=== PATIENT | female | born 1990 | race Caucasian/White ===

== ENCOUNTER 2016-08-13 09:18 | Emergency (ER) | payer OTHER ==
[2016-08-13] MEDS ORDERED: ALBUTEROL 90 MCG/ACT 8GM HFA INHALER As Ordered ONE (10:23)
--- NOTE | 2016-08-13 10:36 | EDDOCDS ---
Nurse's Notes [facility] Name: Chantel Lucas Age: 25 yrs Sex: Female : 1990 Arrival Date: 08/13/2016 Time: 09:18 Bed Triage 2 Private MD: SUZE Diagnosis: Viral infection, unspecified;Acute bronchitis;Acute upper respiratory infections of multiple and unspecified sites Presentation: 08/13 09:30 Presenting complaint: Patient states: pt c/o cough/fever/diarrhea/vomiting/ for approx ead 1 week. Adult Sepsis Screening: The patient does not have new or worsening altered mentation. Patient has a respiratory rate of greater than or equal to 22 (1 point). Systolic blood pressure is greater than 100. Patient has a qSOFA score of 1- Negative Sepsis Screen. Suicide/Homicide risk assessment- the patient denies having any suicidal and/or homicidal ideations and does not present with any other emotional, behavioral or mental health complaints. Status: Patient is not a plumbing service technician or dependent. Transition of care: patient was not received from another setting of care. 09:30 Acuity: CARLEE Level 3 ead 09:30 Method Of Arrival: Walkin/Carried/Asstd ead Triage Assessment: 09:32 General: Appears in no apparent distress, Behavior is appropriate for age, cooperative. ead Pain: Denies pain. HIV screening NA for this visit Offered previously. Neurological: No deficits noted. EENT: Reports nasal congestion. Respiratory: Onset: The symptoms/episode began/occurred approx 1 week, Airway is patent Respiratory effort is even, unlabored, Reports cough that is productive. GI: Reports diarrhea, nausea, vomiting, Denies pain. Derm: Skin is pink, warm & dry. 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 none - PMHx: Chronic Back pain; - PSHx: Cholecystectomy; Adenoidectomy; Tonsillectomy; - Social history: Smoking status: Patient uses tobacco products, current every day smoker. No barriers to communication noted, The patient speaks fluent Mosotho, Speaks appropriately for age. - Family history: Not pertinent. - : The pt / caregiver states he / she is not on anticoagulants. Home medication list is obtained from the patient. - Exposure Risk Screening:: None identified. Screenin:30 Screening information is obtained from the patient. Fall risk: No risks identified. ead Assistance ADL's: requires no assistance with activities of daily living. Abuse/DV Screen: The patient / caregiver reports he/she is: not in a situation that causes fear, pain or injury. Nutritional screening: No deficits noted. Advance Directives: Currently, there is no health care proxy. There is no Power of Filter Changing Technician. home support is adequate. Assessment: 10:30 General: Appears in no apparent distress, comfortable, Behavior is appropriate for age, ead cooperative. Neurological: No deficits noted. EENT: Reports nasal congestion. Cardiovascular: Capillary refill < 3 seconds Chest pain is denied. Respiratory: Airway is patent Respiratory effort is even, unlabored. Respiratory: Reports cough that is. GI: Reports diarrhea, nausea, vomiting. Derm: Skin is pink, warm & dry. Vital Signs: 09:20 BP 136 / 80; Pulse 101; Resp 22; Temp 96.8(O); Pulse Ox 98% on R/A; Weight 142.88 kg [facility] (M); Height 5 ft. 5 in. (165.10 cm) (M); Pain 0/10; 10:31 BP 142 / 67; Pulse 95; Resp 24; Temp 96.7(O); Pulse Ox 99% on R/A; ead 09:20 Body Mass Index 52.42 (142.88 kg, 165.10 cm) [facility] Vitals: 09:20 Log In Time: August 13, 2016 at 09:15. dem1 09:25 RN notified that patient meets Red Flag criteria. [facility] ED Course: 09:19 Patient visited by Catarino Luke. dem1 09:19 NONE is Private Physician. dem1 09:19 Patient moved to Waiting dem1 09:20 Patient visited by Catarino Luke. dem1 09:20 Patient moved to Pre RCE dem1 09:26 Patient moved to Triage 1 ml6 09:28 Patient moved to Pre RCE ml6 09:31 Triage Initiated ead 09:55 Reji Tran [facility]-C [facility] cc10 09:55 Jesus Reyes MD is Attending Physician. cc10 09:55 Patient visited by Reji Tran PA-C. cc10 09:55 Patient visited by Reji Tran PA-C. cc10 09:55 Patient moved to Triage 2 ml6 10:03 [facility] is Referral Physician. cc10 10:30 The patient / caregiver is instructed regarding the plan of care and ED course. ead 10:30 No IV's were initiated during this patient's visit. No procedures done that require ead assistance. Administered Medications: 10:27 Drug: Ventolin 2 puffs [Ventolin HFA 90 mcg/actuation aerosol inhaler (2 puffs)] Route: kjn Inhalation; RT: 10:27 Initial MDI Given. Patient was instructed and evaluated on procedure Patient tolerated kjn procedure well without adverse effect Spacer used Number of puffs given: 2. Order Results: There are currently no results for this order. Outcome: 10:03 Discharge ordered by Provider. cc10 10:30 Discharge Assessment: Patient awake and alert. obeys commands, Oriented to person, ead place and time. patient administered narcotics - no. The following High Risk Discharge criteria are identified: None. Discharged to home ambulatory, with significant other. Condition: unchanged. Discharge instructions given to patient, Instructed on discharge instructions, follow up and referral plans. medication usage, Demonstrated understanding of instructions, medications, Pt was receptive of discharge instructions/ teaching. Prescriptions given X 2, Work note provided to patient. No special radiology studies were completed. Property sent home with patient. 10:35 Patient left the ED. ead Signatures: Syd Han, JESSICA RN ml6 Catarino Luke1 Luna Matthews Emily, RN RN ead Reji Tran PA-C PA-C cc10 MTDD
--- NOTE | 2016-08-13 10:36 | EDDOCDS ---
Physician Documentation [facility] Name: Chantel Lucas Age: 25 yrs Sex: Female : 1990 Arrival Date: 08/13/2016 Time: 09:18 Bed Triage 2 Private MD: NONE Disposition: 08/13/16 10:03 Discharged to Home/Self Care. Impression: Viral infection, unspecified, Acute bronchitis, Acute upper respiratory infections of multiple and unspecified sites. - Condition is Stable. - Discharge Instructions: Acute Bronchitis, Upper Respiratory Infection, Adult, Viral Infections. - Prescriptions for Prednisone 20 mg Oral Tablet - take 1 tablet by ORAL route once daily for 5 days; 5 tablet. benzonatate 200 mg Oral Capsule - take 1 capsule by ORAL route 3 times per day As needed; 30 capsule. - Medication Reconciliation, Work Release Form - 2 day form. - Follow up: [facility]; When: Call to arrange an appointment; Reason: Wound/Symptom Recheck, Recheck today's complaints, Worsening of conditions, Continuance of care, To establish care. - Problem is an ongoing problem. - Symptoms are unchanged. Historical: - Allergies: Bactrim DS (Rash); PENICILLINS (Unknown); - Home Meds: 1. none - PMHx: Chronic Back pain; - PSHx: Cholecystectomy; Adenoidectomy; Tonsillectomy; - Social history: Smoking status: Patient uses tobacco products, current every day smoker. No barriers to communication noted, The patient speaks fluent Yakut, Speaks appropriately for age. - Family history: Not pertinent. - : The pt / caregiver states he / she is not on anticoagulants. Home medication list is obtained from the patient. - Exposure Risk Screening:: None identified. 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 5 in. (165.10 cm) (M); Pain 0/10; 10:31 BP 142 / 67; Pulse 95; Resp 24; Temp 96.7(O); Pulse Ox 99% on R/A; ead 09:20 Body Mass Index 52.42 (142.88 kg, 165.10 cm) dem1 MDM: 10:01 Ventolin Inhaler 2 puffs Inhalation once ordered. cc10 10:01 MDI teaching with Spacer ordered. cc10 10:01 Call Respiratory ordered. cc10 10:01 Call Respiratory complete. jlf 10:19 Financial registration complete. va Administered Medications: 10:27 Drug: Ventolin 2 puffs [Ventolin HFA 90 mcg/actuation aerosol inhaler (2 puffs)] Route: kjn Inhalation; Signatures: Mp Chun, ANGELA PROFESSOR OF MUSIC jlf Ann Turner,RN RN eaReji Diehl, PA-C PA-C cc10 Sara Galvez Katherine kjn MTDD
--- NOTE | 2016-08-15 11:36 | EDDOCDS ---
Physician Documentation [facility] Name: Chantel Lucas Age: 25 yrs Sex: Female : 1990 Arrival Date: 08/13/2016 Time: 09:18 Bed Triage 2 Private MD: NONE Disposition: 08/13/16 10:03 Discharged to Home/Self Care. Impression: Viral infection, unspecified, Acute bronchitis, Acute upper respiratory infections of multiple and unspecified sites. - Condition is Stable. - Discharge Instructions: Acute Bronchitis, Upper Respiratory Infection, Adult, Viral Infections. - Prescriptions for Prednisone 20 mg Oral Tablet - take 1 tablet by ORAL route once daily for 5 days; 5 tablet. benzonatate 200 mg Oral Capsule - take 1 capsule by ORAL route 3 times per day As needed; 30 capsule. - Medication Reconciliation, Work Release Form - 2 day form. - Follow up: [facility]; When: Call to arrange an appointment; Reason: Wound/Symptom Recheck, Recheck today's complaints, Worsening of conditions, Continuance of care, To establish care. - Problem is an ongoing problem. - Symptoms are unchanged. Historical: - Allergies: Bactrim DS (Rash); PENICILLINS (Unknown); - Home Meds: 1. none - PMHx: Chronic Back pain; - PSHx: Cholecystectomy; Adenoidectomy; Tonsillectomy; - Social history: Smoking status: Patient uses tobacco products, current every day smoker. No barriers to communication noted, The patient speaks fluent Azeri, Speaks appropriately for age. - Family history: Not pertinent. - : The pt / caregiver states he / she is not on anticoagulants. Home medication list is obtained from the patient. - Exposure Risk Screening:: None identified. 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 5 in. (165.10 cm) (M); Pain 0/10; 10:31 BP 142 / 67; Pulse 95; Resp 24; Temp 96.7(O); Pulse Ox 99% on R/A; ead 09:20 Body Mass Index 52.42 (142.88 kg, 165.10 cm) dem1 MDM: 10:01 Ventolin Inhaler 2 puffs Inhalation once ordered. cc10 10:01 MDI teaching with Spacer ordered. cc10 10:01 Call Respiratory ordered. cc10 10:01 Call Respiratory complete. jlf 10:19 Financial registration complete. md 10:56 [facility] Payment Agreement was scanned into [employer] and attached to record. md 13:44 T-Sheet-- Draft Copy was scanned into [employer] and attached to record. klr Administered Medications: 10:27 Drug: Ventolin 2 puffs [Ventolin HFA 90 mcg/actuation aerosol inhaler (2 puffs)] Route: kjn Inhalation; Signatures: Mp Chun, REFRACTORY TECHNICIAN REFRACTORY TECHNICIAN Ann Santos,RN RN Reji Venegas, PA-C PA-C cc10 Sara Galvez Kathie klr Navarra, Katherine kjn The chart was reviewed and I authenticate all verbal orders and agree with the evaluation and treatment provided.Attachments: 10:56 [facility] Payment Agreement md 13:44 T-Sheet-- Draft Copy klr Chart Complete MTDD
--- NOTE | 2016-08-15 11:36 | EDDOCDS ---
Nurse's Notes [facility] Name: Chantel Lucas Age: 25 yrs Sex: Female : 1990 Arrival Date: 08/13/2016 Time: 09:18 Bed Triage 2 Private MD: SUZE Diagnosis: Viral infection, unspecified;Acute bronchitis;Acute upper respiratory infections of multiple and unspecified sites Presentation: 08/13 09:30 Presenting complaint: Patient states: pt c/o cough/fever/diarrhea/vomiting/ for approx ead 1 week. Adult Sepsis Screening: The patient does not have new or worsening altered mentation. Patient has a respiratory rate of greater than or equal to 22 (1 point). Systolic blood pressure is greater than 100. Patient has a qSOFA score of 1- Negative Sepsis Screen. Suicide/Homicide risk assessment- the patient denies having any suicidal and/or homicidal ideations and does not present with any other emotional, behavioral or mental health complaints. Status: Patient is not a dean of student services or dependent. Transition of care: patient was not received from another setting of care. 09:30 Acuity: CARLEE Level 3 ead 09:30 Method Of Arrival: Walkin/Carried/Asstd ead Triage Assessment: 09:32 General: Appears in no apparent distress, Behavior is appropriate for age, cooperative. ead Pain: Denies pain. HIV screening NA for this visit Offered previously. Neurological: No deficits noted. EENT: Reports nasal congestion. Respiratory: Onset: The symptoms/episode began/occurred approx 1 week, Airway is patent Respiratory effort is even, unlabored, Reports cough that is productive. GI: Reports diarrhea, nausea, vomiting, Denies pain. Derm: Skin is pink, warm & dry. 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 none - PMHx: Chronic Back pain; - PSHx: Cholecystectomy; Adenoidectomy; Tonsillectomy; - Social history: Smoking status: Patient uses tobacco products, current every day smoker. No barriers to communication noted, The patient speaks fluent Nepali, Speaks appropriately for age. - Family history: Not pertinent. - : The pt / caregiver states he / she is not on anticoagulants. Home medication list is obtained from the patient. - Exposure Risk Screening:: None identified. Screenin:30 Screening information is obtained from the patient. Fall risk: No risks identified. ead Assistance ADL's: requires no assistance with activities of daily living. Abuse/DV Screen: The patient / caregiver reports he/she is: not in a situation that causes fear, pain or injury. Nutritional screening: No deficits noted. Advance Directives: Currently, there is no health care proxy. There is no Power of Licensed Loan Officer Assistant. home support is adequate. Assessment: 10:30 General: Appears in no apparent distress, comfortable, Behavior is appropriate for age, ead cooperative. Neurological: No deficits noted. EENT: Reports nasal congestion. Cardiovascular: Capillary refill < 3 seconds Chest pain is denied. Respiratory: Airway is patent Respiratory effort is even, unlabored. Respiratory: Reports cough that is. GI: Reports diarrhea, nausea, vomiting. Derm: Skin is pink, warm & dry. Vital Signs: 09:20 BP 136 / 80; Pulse 101; Resp 22; Temp 96.8(O); Pulse Ox 98% on R/A; Weight 142.88 kg [facility] (M); Height 5 ft. 5 in. (165.10 cm) (M); Pain 0/10; 10:31 BP 142 / 67; Pulse 95; Resp 24; Temp 96.7(O); Pulse Ox 99% on R/A; ead 09:20 Body Mass Index 52.42 (142.88 kg, 165.10 cm) [facility] Vitals: 09:20 Log In Time: August 13, 2016 at 09:15. dem1 09:25 RN notified that patient meets Red Flag criteria. [facility] ED Course: 09:19 Patient visited by Catarino Luke. dem1 09:19 NONE is Private Physician. dem1 09:19 Patient moved to Waiting dem1 09:20 Patient visited by Catarino Luke. dem1 09:20 Patient moved to Pre RCE dem1 09:26 Patient moved to Triage 1 ml6 09:28 Patient moved to Pre RCE ml6 09:31 Triage Initiated ead 09:55 [facility]C [facility] cc10 09:55 Jesus Reyes MD is Attending Physician. cc10 09:55 Patient visited by Reji Tran PA-C. cc10 09:55 Patient visited by Reji Tran PA-C. cc10 09:55 Patient moved to Triage 2 ml6 10:03 [facility] is Referral Physician. cc10 10:30 The patient / caregiver is instructed regarding the plan of care and ED course. ead 10:30 No IV's were initiated during this patient's visit. No procedures done that require ead assistance. 10:56 [facility] Payment Agreement was scanned into [employer] and attached to record. ma 13:44 T-Sheet-- Draft Copy was scanned into [employer] and attached to record. klr Administered Medications: 10:27 Drug: Ventolin 2 puffs [Ventolin HFA 90 mcg/actuation aerosol inhaler (2 puffs)] Route: kjn Inhalation; RT: 10:27 Initial MDI Given. Patient was instructed and evaluated on procedure Patient tolerated kjn procedure well without adverse effect Spacer used Number of puffs given: 2. Order Results: There are currently no results for this order. Outcome: 10:03 Discharge ordered by Provider. cc10 10:30 Discharge Assessment: Patient awake and alert. obeys commands, Oriented to person, ead place and time. patient administered narcotics - no. The following High Risk Discharge criteria are identified: None. Discharged to home ambulatory, with significant other. Condition: unchanged. Discharge instructions given to patient, Instructed on discharge instructions, follow up and referral plans. medication usage, Demonstrated understanding of instructions, medications, Pt was receptive of discharge instructions/ teaching. Prescriptions given X 2, Work note provided to patient. No special radiology studies were completed. Property sent home with patient. 10:35 Patient left the ED. ead Signatures: Syd Han, RN RN ml6 Catarino Luke1 Luna Matthews Emily, RN RN ead Reji Tran PA-C PA-C cc10 Sara Galvez Kathie klr Chart Complete MTDD
--- NOTE | 2016-08-15 11:36 | EDDOCDS ---
Physician Documentation [facility] Name: Chantel Lucas Age: 25 yrs Sex: Female : 1990 Arrival Date: 08/13/2016 Time: 09:18 Bed Triage 2 Private MD: NONE Disposition: 08/13/16 10:03 Discharged to Home/Self Care. Impression: Viral infection, unspecified, Acute bronchitis, Acute upper respiratory infections of multiple and unspecified sites. - Condition is Stable. - Discharge Instructions: Acute Bronchitis, Upper Respiratory Infection, Adult, Viral Infections. - Prescriptions for Prednisone 20 mg Oral Tablet - take 1 tablet by ORAL route once daily for 5 days; 5 tablet. benzonatate 200 mg Oral Capsule - take 1 capsule by ORAL route 3 times per day As needed; 30 capsule. - Medication Reconciliation, Work Release Form - 2 day form. - Follow up: [facility]; When: Call to arrange an appointment; Reason: Wound/Symptom Recheck, Recheck today's complaints, Worsening of conditions, Continuance of care, To establish care. - Problem is an ongoing problem. - Symptoms are unchanged. Historical: - Allergies: Bactrim DS (Rash); PENICILLINS (Unknown); - Home Meds: 1. none - PMHx: Chronic Back pain; - PSHx: Cholecystectomy; Adenoidectomy; Tonsillectomy; - Social history: Smoking status: Patient uses tobacco products, current every day smoker. No barriers to communication noted, The patient speaks fluent Amharic, Speaks appropriately for age. - Family history: Not pertinent. - : The pt / caregiver states he / she is not on anticoagulants. Home medication list is obtained from the patient. - Exposure Risk Screening:: None identified. 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 5 in. (165.10 cm) (M); Pain 0/10; 10:31 BP 142 / 67; Pulse 95; Resp 24; Temp 96.7(O); Pulse Ox 99% on R/A; ead 09:20 Body Mass Index 52.42 (142.88 kg, 165.10 cm) dem1 MDM: 10:01 Ventolin Inhaler 2 puffs Inhalation once ordered. cc10 10:01 MDI teaching with Spacer ordered. cc10 10:01 Call Respiratory ordered. cc10 10:01 Call Respiratory complete. jlf 10:19 Financial registration complete. mi 10:56 [facility] Payment Agreement was scanned into [email or web address] and attached to record. mi 13:44 T-Sheet-- Draft Copy was scanned into [email or web address] and attached to record. klr Administered Medications: 10:27 Drug: Ventolin 2 puffs [Ventolin HFA 90 mcg/actuation aerosol inhaler (2 puffs)] Route: kjn Inhalation; Signatures: Mp Chun, PROFESSOR OF JOURNALISM PROFESSOR OF JOURNALISM Ann Santos,RN RN Reji Venegas, PA-C PA-C cc10 Sara Galvez Kathie klr Navarra, Katherine kjn The chart was reviewed and I authenticate all verbal orders and agree with the evaluation and treatment provided.Attachments: 10:56 [facility] Payment Agreement mi 13:44 T-Sheet-- Draft Copy klr Chart Complete MTDD
== END 2016-08-13 10:35 | disposition home or self-care (01) ==
LOC: M ED 09:18
DX: J20.8 Acute bronchitis due to other specified organisms (principal); G89.29 Other chronic pain; M54.9 Dorsalgia, unspecified; Z72.0 Tobacco use; Z88.0 Allergy status to penicillin; Z88.1 Allergy status to other antibiotic agents

== ENCOUNTER 2016-09-20 15:04 | Emergency (ER) | payer OTHER ==
[~2016-09-20] VITALS: Ht 154.9 cm; Wt 136.1 kg
--- NOTE | 2016-09-20 16:04 | REP ---
LEFT FOOT: REASON: Pain after trauma. COMPARISON: None. FINDINGS: The joint spaces are symmetric and relatively well maintained. There is no evidence of acute fracture or destructive osseous lesion. IMPRESSION: Negative. Signed by Wallace Tapia DO 09/20/2016 04:56 P
[2016-09-20] MEDS ORDERED: IBUP600T26 PO (17:04)
[2016-09-20 17:16] VITALS: BP 138/63
== END 2016-09-20 17:22 | disposition home or self-care (01) ==
LOC: M ED 17:20
DX: S90.32XA Contusion of left foot, initial encounter (principal); W22.8XXA Striking against or struck by other objects, initial encounter; Y92.524 Gas station as the place of occurrence of the external cause; Y93.89 Activity, other specified; Y99.8 Other external cause status

== ENCOUNTER → 2017-06-18 | Outpatient (CLI) | payer OTHER ==
[~2017-06-18] MED LIST: IBUP-1022 PO
[2017-06-18 13:01] LABS: BASO % 0.3 % (0.0-1.0); EOS # 0.2 10^3/uL (0.0-0.50); EOS % 1.8 % (0.0-3.0); IMMATURE GRANULOCYTE % 0.4 % (0-0); LYMPH # 2.6 10^3/uL (1.5-6.5); LYMPH % 24.8 % (24.0-44.0); MEAN CORPUSCULAR HEMOGLOBIN 29.4 pg (27.0-33.0); MEAN CORPUSCULAR HGB CONC 33.8 g/dl (32.0-36.5); MEAN CORPUSCULAR VOLUME 87.2 fl (80.0-96.0); MONO # 0.6 10^3/uL (0.0-0.8); NEUTROPHILS # 6.9 10^3/uL (1.8-7.7); NEUTROPHILS % 66.7 % (36.0-66.0); PLATELET COUNT, AUTOMATED 327 10^3/uL (150-450); RED CELL DISTRIBUTION WIDTH 13.1 % (11.5-14.5); WHITE BLOOD COUNT 10.4 10^3/uL (4.0-10.0)
[2017-06-19 11:59] LABS: HBsAg Prenatal NEGATIVE (NEGATIVE)
== END ==
LOC: M SMT 11:24
PROVIDERS: ATTEND Specialist
DX: Z34.82 Encounter for supervision of other normal pregnancy, second trimester (principal)

== ENCOUNTER → 2017-07-12 | Outpatient (REF) | payer OTHER | LOC: M LAB REF 18:14 | DX: L02.01 Cutaneous abscess of face (principal) ==

== ENCOUNTER → 2017-07-24 | Outpatient (CLI) | payer OTHER | LOC: M RAD 16:55 | DX: Z36.9 Encounter for antenatal screening, unspecified (principal); Z3A.19 19 weeks gestation of pregnancy | CPT/HCPCS: 76811 ==

== ENCOUNTER → 2017-08-09 | Outpatient (CLI) | payer OTHER | LOC: M RAD 13:55 | DX: Z36.2 Encounter for other antenatal screening follow-up (principal) | CPT/HCPCS: 76816 ==

== ENCOUNTER → 2017-09-23 | Outpatient (CLI) | payer OTHER | LOC: M RAD 16:29 | DX: Z34.82 Encounter for supervision of other normal pregnancy, second trimester (principal) | CPT/HCPCS: 76816 ==

== ENCOUNTER → 2017-09-25 | Outpatient (CLI) | payer OTHER ==
[2017-09-25 14:09] LABS: BASO % 0.3 % (0.0-1.0); EOS # 0.1 10^3/uL (0.0-0.50); EOS % 1.3 % (0.0-3.0); HEMATOCRIT 33.8 % (36.0-47.0); HEMOGLOBIN 11.2 g/dl (12.0-16.0); IMMATURE GRANULOCYTE % 0.6 % (0-3.0); LYMPH # 1.7 10^3/uL (1.5-6.5); LYMPH % 16.2 % (24.0-44.0); MEAN CORPUSCULAR HEMOGLOBIN 29.1 pg (27.0-33.0); MEAN CORPUSCULAR HGB CONC 33.1 g/dl (32.0-36.5); MEAN CORPUSCULAR VOLUME 87.8 fl (80.0-96.0); MONO # 0.6 10^3/uL (0.0-0.8); MONO % 5.3 % (0.0-5.0); NEUTROPHILS % 76.3 % (36.0-66.0); PLATELET COUNT, AUTOMATED 321 10^3/uL (150-450); RED BLOOD COUNT 3.85 10^6/uL (4.00-5.40); RED CELL DISTRIBUTION WIDTH 13.5 % (11.5-14.5); WHITE BLOOD COUNT 10.4 10^3/uL (4.0-10.0)
[2017-09-25 14:23] LABS: TOTAL PROTEIN,RANDOM URINE 5.3 MG/DL (0.0-12.0)
[2017-09-25 14:23] LABS: CREATININE,RANDOM URINE 34.9 MG/DL
[2017-09-25 14:30] LABS: ALT/SGPT 24 U/L (12-78); AST/SGOT 13 U/L (7-37); BILIRUBIN,TOTAL 0.3 MG/DL (0.2-1.0); CREATININE FOR GFR 0.36 MG/DL (0.55-1.30); GLOMERULAR FILTRATION RATE > 60.0 (>60); GLUCOSE CHALLENGE TEST 1 HOUR 102 MG/DL (LESS THAN 140); LDH LACTATE DEHYDROGENASE 151 U/L (84-246); URIC ACID 3.6 MG/DL (2.6-6.0)
[2017-09-25 14:34] LABS: RUBELLA IgG QUALITATIVE IMMUNE (IMMUNE)
[2017-09-25 14:39] LABS: HBsAg Prenatal NEGATIVE (NEGATIVE)
[2017-09-25 15:02] LABS: HEPATITIS C VIRUS ABY INDEX 0.1 INDEX (<0.8)
[2017-09-25 15:03] LABS: HIV 1&2 SCREEN CENTAUR NEGATIVE (NEGATIVE)
== END ==
LOC: M WUC 11:10
DX: Z36.89 Encounter for other specified antenatal screening (principal); Z3A.00 Weeks of gestation of pregnancy not specified
CPT/HCPCS: 84460

== ENCOUNTER 2017-10-21 19:03 | Outpatient (CLI) | payer OTHER | END 2017-10-21 20:25 | disposition home or self-care (01) | LOC: M LDO 19:03 | DX: O36.8130 Decreased fetal movements, third trimester, not applicable or unspecified (principal); O26.893 Other specified pregnancy related conditions, third trimester; M54.5 Low back pain; Z3A.30 30 weeks gestation of pregnancy ==

== ENCOUNTER → 2017-11-15 | Outpatient (CLI) | payer OTHER | LOC: M SMT 13:25 | DX: Z34.83 Encounter for supervision of other normal pregnancy, third trimester (principal); Z3A.34 34 weeks gestation of pregnancy | CPT/HCPCS: 76816 ==

== ENCOUNTER → 2017-11-20 | Outpatient (CLI) | payer OTHER | LOC: M RAD 17:52 | DX: O36.8131 Decreased fetal movements, third trimester, fetus 1 (principal); Z3A.35 35 weeks gestation of pregnancy | CPT/HCPCS: 76815 ==

== ENCOUNTER → 2017-11-20 | Outpatient (REF) | payer OTHER | LOC: M LAB REF 17:04 | DX: Z34.83 Encounter for supervision of other normal pregnancy, third trimester (principal) ==

== ENCOUNTER 2017-12-12 18:16 | Inpatient (IN) | payer OTHER ==
[2017-12-12] MEDS: miSOPROStol 50 MCG 1/2 TAB (S0191) SL ×2 (19:15→23:15)
[2017-12-12 20:36] LABS: AMPHETAMINES URINE REFLEX NEGATIVE (NEGATIVE); BENZODIAZEPINES URINE REFLEX NEGATIVE (NEGATIVE); CANNABINOIDS URINE REFLEX NEGATIVE (NEGATIVE); COCAINE METABOLITE URINE REFLE NEGATIVE (NEGATIVE); METHADONE URINE REFLEX NEGATIVE (NEGATIVE); OPIATES URINE REFLEX NEGATIVE (NEGATIVE); PHENCYCLIDINE URINE REFLEX NEGATIVE (NEGATIVE)
[2017-12-12 20:45] LABS: HEMATOCRIT 32.1 % (36.0-47.0); HEMOGLOBIN 10.9 g/dl (12.0-15.5); MEAN CORPUSCULAR HEMOGLOBIN 28.9 pg (27.0-33.0); MEAN CORPUSCULAR VOLUME 85.1 fl (80.0-96.0); PLATELET COUNT, AUTOMATED 321 10^3/uL (150-450); RED BLOOD COUNT 3.77 10^6/uL (4.00-5.40); RED CELL DISTRIBUTION WIDTH 13.7 % (11.5-14.5)
[2017-12-12 20:58] LABS: BARBITURATES URINE REFLEX PENDING CONFIRMATION (NEGATIVE)
[2017-12-13] MEDS: VANCOMYCIN HCL 750 MG, VIAL MATE ADAPTER 1 EACH in D5W 250 ML IV ×2 (02:00→10:48)
[2017-12-13] MEDS: miSOPROStol 50 MCG 1/2 TAB (S0191) SL (03:15)
[2017-12-13] MEDS: PROMETHAZINE INJ 25 MG/ML VIAL (J2550) IV (04:00)
[2017-12-13] MEDS: BUTORPHANOL 2 MG/ML INJ (J0595) IV (04:00)
[2017-12-13] MEDS ORDERED: FENTANYL 2MCG/ML ROPIVACAINE 0.2% IN 0.9% NACL 200ML IVBAG As Ordered (07:14)
[2017-12-13] MEDS ORDERED: LR 1,000 ML IV (10:03)
[2017-12-13] MEDS ORDERED: diphenhydrAMINE INJ 50MG/ML VIAL (J1200) IV (10:45)
[2017-12-13] MEDS ORDERED: FENTANYL/ROPIVACAINE/NACL BAG 200 ML EPIDURAL (10:45)
[2017-12-13] MEDS ORDERED: ONDANSETRON 4MG/2ML VIAL (J2405) IV (10:45)
[2017-12-13] MEDS ORDERED: REFRIGERATOR IV KEYS XX (10:45)
[2017-12-13] MEDS ORDERED: NALOXONE INJ 0.4 MG/1 ML VIAL (J2310) IV (10:45)
[2017-12-13] MEDS ORDERED: ePHEDrine SULFATE 25 MG/5 ML(5MG/ML) SYRINGE IV (10:45)
[2017-12-13] MEDS ORDERED: LACTATED RINGER'S 1000 ML IV (10:45)
[2017-12-13] MEDS ORDERED: EPIDURAL/PCA KEYS XX (10:45)
[2017-12-13] MEDS ORDERED: EPIDURAL COMMENT XX (10:45)
[2017-12-13] MEDS: OXYTOCIN DRIP 30 UNITS in APPROPRIATE DILUENT 1 EA IV ×3 (11:07→18:32)
[2017-12-13 17:58] LABS: CORD GAS ABE A -8.5; CORD GAS HCO3 A 22.2 MEQ/L; CORD GAS HCO3 V 22.3 MEQ/L; CORD GAS O2 SAT A 34.4 %; CORD GAS O2 SAT V 58.3 %; CORD GAS PCO2 V 53.8 mmHg; CORD GAS PH A 7.126 UNITS; CORD GAS PH V 7.235 UNITS; CORD GAS PO2 A 22.7 mmHg; CORD GAS PO2 V 25.9 mmHg; CORD GAS SBC A 16.4 MEQ/L; CORD GAS SBC V 18.7 MEQ/L; CORD GAS TCO2 A 24.4 MEQ/L; CORD GAS TCO2 V 23.9 MEQ/L
[2017-12-13] MEDS ORDERED: ANUSOL HC CREAM 30GM TOP (18:15)
[2017-12-13] MEDS ORDERED: MOM 30ML SUSPENSION UDC PO (18:15)
[2017-12-13] MEDS ORDERED: DIBUCAINE 1% OINTMENT 30GM TOP (18:15)
[2017-12-13] MEDS ORDERED: METHYLERGONOVINE MALEATE 0.2 MG TAB PO (18:15)
[2017-12-13] MEDS: SERTRALINE HCL 25 MG TABLET PO (22:07)
[2017-12-13] MEDS: IBUPROFEN 800 MG TAB PO (22:07)
[2017-12-14] MEDS: DOCUSATE SODIUM 100 MG CAP PO (08:29)
[2017-12-14] MEDS: PRENATAL VITAMINS CHEWABLE TABLET PO (08:29)
[2017-12-14] MEDS: IBUPROFEN 800 MG TAB PO ×2 (08:29→18:43)
[2017-12-14] MEDS: ACETAMINOPHEN 500 MG TAB PO (18:43)
[2017-12-14] MEDS: SERTRALINE HCL 25 MG TABLET PO (21:00)
[2017-12-15] MEDS: ACETAMINOPHEN 500 MG TAB PO (06:30)
[2017-12-15] MEDS: RHOGAM 300 MCG (1500 IU) INJ (J2790) IM (07:22)
[2017-12-15] MEDS: MEASLES,MUMPS,RUBELLA VACCINE INJ (MMR-II) (90707) SC (07:22)
[2017-12-15] MEDS: PRENATAL VITAMINS CHEWABLE TABLET PO (08:09)
[2017-12-15] MEDS: IBUPROFEN 800 MG TAB PO (08:09)
== END 2017-12-15 12:29 | disposition home or self-care (01) | DRG 560 ==
LOC: M LDI 18:16 → M OBS 12-13 20:15
PROC: 10E0XZZ Delivery of Products of Conception, External Approach (ICD-10-PCS; principal; 2017-12-13)
PROC: 3E0DXGC Introduction of Other Therapeutic Substance into Mouth and Pharynx, External Approach (ICD-10-PCS; 2017-12-13)
PROC: 10907ZC Drainage of Amniotic Fluid, Therapeutic from Products of Conception, Via Natural or Artificial Opening (ICD-10-PCS; 2017-12-13)
DX: O41.03X0 Oligohydramnios, third trimester, not applicable or unspecified (principal); Z68.44 Body mass index [BMI] 60.0-69.9, adult; E66.9 Obesity, unspecified; Z37.0 Single live birth; Z3A.38 38 weeks gestation of pregnancy; O36.8130 Decreased fetal movements, third trimester, not applicable or unspecified; Z88.0 Allergy status to penicillin; Z88.1 Allergy status to other antibiotic agents; O99.824 Streptococcus B carrier state complicating childbirth; O69.3XX0 Labor and delivery complicated by short cord, not applicable or unspecified; O99.214 Obesity complicating childbirth

== ENCOUNTER → 2017-12-12 | Outpatient (CLI) | payer OTHER | LOC: M RAD 17:32 | DX: O26.843 Uterine size-date discrepancy, third trimester (principal) | CPT/HCPCS: 76816 ==

== ENCOUNTER → 2018-01-28 | Outpatient (CLI) | payer OTHER | LOC: M RAD 13:41 | DX: E04.9 Nontoxic goiter, unspecified (principal) | CPT/HCPCS: 76536 ==

== ENCOUNTER → 2018-02-04 | Outpatient (REF) ==
[2018-02-05 09:52] LABS: RUBELLA IgG QUALITATIVE IMMUNE (IMMUNE)
[2018-02-06 08:11] LABS: RUBEOLA IgG ANTIBODY <25.0 AU/mL (Immune >29.9)
[2018-02-06 08:11] LABS: HERPES ZOSTER, VARICELLA IgG 298 index (Immune >165)
== END ==
LOC: M LAB 13:36
DX: Z02.89 Encounter for other administrative examinations (principal)

== ENCOUNTER → 2018-02-26 | Outpatient (CLI) | payer OTHER ==
[~2018-02-26] MED LIST changes: -IBUP-1022 PO; +METHACHOLINE KIT (J7674) INH
== END ==
LOC: M CARPUL 13:00
DX: R06.09 Other forms of dyspnea (principal)

== ENCOUNTER 2018-04-05 08:54 | Emergency (ER) | payer OTHER ==
[2018-04-05] MEDS: ALBUTEROL SULFATE 2.5 MG/0.5 ML INH NEB SOLN NEB (09:40)
== END 2018-04-05 10:51 | disposition home or self-care (01) ==
LOC: M ED 08:54
DX: J06.9 Acute upper respiratory infection, unspecified (principal); R51 Headache; F41.9 Anxiety disorder, unspecified; F32.9 Major depressive disorder, single episode, unspecified; Z72.0 Tobacco use; Z79.899 Other long term (current) drug therapy; Z88.0 Allergy status to penicillin; Z88.1 Allergy status to other antibiotic agents
CPT/HCPCS: 71046

== ENCOUNTER → 2018-07-22 | Outpatient (REF) | payer OTHER ==
[~2018-07-22] MED LIST changes: +ALL10TAB28 PO; +BUTACAP78 PO; +COLA100C5 PO; +IBUP-1022 PO; +IBUP-1114 PO; +MAPA500T2 PO; -METHACHOLINE KIT (J7674) INH; +MOM30SS PO; +PROAAER10 INH; +TESS100C PO; +ZOLO50TA PO
[2018-07-22 13:31] LABS: HEMATOCRIT 39.4 % (36.0-47.0); HEMOGLOBIN 13.3 g/dl (12.0-15.5); MEAN CORPUSCULAR HEMOGLOBIN 28.7 pg (27.0-33.0); MEAN CORPUSCULAR HGB CONC 33.8 g/dl (32.0-36.5); MEAN CORPUSCULAR VOLUME 85.1 fl (80.0-96.0); PLATELET COUNT, AUTOMATED 337 10^3/uL (150-450); RED BLOOD COUNT 4.63 10^6/uL (4.00-5.40); WHITE BLOOD COUNT 9.6 10^3/uL (4.0-10.0)
[2018-07-22 13:42] LABS: INR 0.96; PROTHROMBIN TIME 12.9 SECONDS (12.1-14.4)
[2018-07-22 13:43] LABS: PARTIAL THROMBOPLASTIN TIME 30.7 SECONDS (25.4-37.6)
[2018-07-22 14:18] LABS: ALBUMIN 3.3 GM/DL (3.2-5.2); ALT/SGPT 37 U/L (12-78); BILIRUBIN,TOTAL 0.4 MG/DL (0.2-1.0); BLOOD UREA NITROGEN 9 MG/DL (7-18); CARBON DIOXIDE LEVEL 26 MEQ/L (21-32); CHLORIDE LEVEL 106 MEQ/L (98-107); FERRITIN 25 NG/ML (8-252); FREE T4 1.01 NG/DL (0.76-1.46); GLOMERULAR FILTRATION RATE > 60.0 (>60); GLUCOSE, FASTING 82 MG/DL (70-100); SODIUM LEVEL 141 MEQ/L (136-145); TOTAL PROTEIN 6.6 GM/DL (6.4-8.2)
[2018-07-23 11:37] LABS: HEPATITIS B SURFACE ANTIGEN NEGATIVE (NEGATIVE)
[2018-07-23 11:53] LABS: HEPATITIS B CORE ANTIBODY IGM NEGATIVE (NEGATIVE); HEPATITIS C VIRUS ABY INDEX 0.1 INDEX (<0.8)
[2018-07-23 13:38] LABS: HEPATITIS B SURFACE ANTIBODY POSITIVE (POSITIVE)
[2018-07-25 00:10] LABS: ALPHA 1 ANTITRYPSIN 132 mg/dL (90-200); ANA (HEP2) Positive (.)
== END ==
LOC: M SFHCPLAZ 10:37
PROVIDERS: ATTEND Physician Assistant
DX: R93.2 Abnormal findings on diagnostic imaging of liver and biliary tract (principal); F32.9 Major depressive disorder, single episode, unspecified

== ENCOUNTER → 2018-07-23 | Outpatient (CLI) | payer OTHER ==
--- NOTE | 2018-07-23 08:13 | REP ---
Clinical: Follow up abnormal findings. Technique: Real time cedeño scale ultrasound examination using curved array transducer. Findings: The liver is enlarged and diffusely increased echogenicity suggesting hepatomegaly and fatty infiltration. No focal hepatic lesion identified. Liver measures approximately 21 cm in craniocaudal length. Pancreas is incompletely evaluated due to interposed bowel gas. The patient is status post cholecystectomy. No biliary ductal dilatation is appreciated and the common bile duct measures 4.9 mm diameter. Right kidney appears malrotated but without hydronephrosis and measures 10.3 x 6.2 x 5.9 cm. No ascites. Impression: 1. Hepatomegaly and fatty infiltration to the liver without focal hepatic lesion. 2. 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 3. Prior cholecystectomy without biliary ductal dilatation. Electronically Signed by Florentino Pedroza MD 07/23/2018 08:05 A
== END ==
LOC: M RAD 07:30
PROVIDERS: ATTEND Physician Assistant
DX: K76.0 Fatty (change of) liver, not elsewhere classified (principal); R16.0 Hepatomegaly, not elsewhere classified; Q63.2 Ectopic kidney; Z90.49 Acquired absence of other specified parts of digestive tract

== ENCOUNTER → 2018-08-20 | Outpatient (CLI) | payer OTHER ==
--- NOTE | 2018-08-20 07:43 | PFTRPT ---
Height: 62.00 Inches Weight: 300.00 Lbs BSA: 2.27 Diagnosis: R06.2 DATE OF PROCEDURE: 08/20/2018 ORDERED BY: Rhiannon Shea PA-C Spirometry: Study of excellent technical quality. Forced vital capacity normal. FEV1 in proportion. Obstructive index is, therefore, normal. Flow Volume Loop: Expiratory limb of the flow volume loop is normal. Lung Volumes: Total lung capacity normal. Residual volume is generally in proportion. Diffusing Capacity: Diffusing capacity is normal. Hemoglobin: No hemoglobin available for correction. Airway Mechanics: Airway resistance and conductance are normal. IMPRESSION: Normal study. MTDD
== END ==
LOC: M CARPUL 06:59
PROVIDERS: ATTEND Physician Assistant
DX: R06.2 Wheezing (principal)

== ENCOUNTER → 2018-10-13 | Outpatient (REF) | payer OTHER | LOC: M SFHCPLAZ 13:06 | PROVIDERS: ATTEND Physician Assistant | DX: R19.7 Diarrhea, unspecified (principal) ==

== ENCOUNTER → 2019-01-20 | Outpatient (CLI) | payer OTHER ==
[2019-01-20 13:44] LABS: ALBUMIN 3.5 GM/DL (3.2-5.2); ALT/SGPT 33 U/L (12-78); BILIRUBIN,DIRECT 0.1 MG/DL (0.0-0.2); BILIRUBIN,TOTAL 0.3 MG/DL (0.2-1.0); IRON (FE) 70 UG/DL (50-170); PERCENT SATURATION 23.2 % (13.2-45.0); TOTAL IRON BINDING CAPACITY 302 UG/DL (250-450); TOTAL PROTEIN 6.7 GM/DL (6.4-8.2)
[2019-01-21 10:49] LABS: HEPATITIS B SURFACE ANTIBODY NEGATIVE (POSITIVE)
[2019-01-21 11:29] LABS: HEPATITIS C VIRUS ABY INDEX 0.1 INDEX (<0.8)
[2019-01-22 08:09] LABS: ANTI-MITOCHONDRIAL ANTIBODY <20.0 Units (0.0-20.0); ANTI-SMOOTH MUSCLE ANTIBODY 2 Units (0-19); ANTINUCLEAR ANTIBODIES DIRECT Negative (Negative); HEPATITIS A IgG TOTAL Negative (Negative); LIVER-KIDNEY MICROSOMAL ABY <20.1 Units (0.0-20.0); TISSUE TRANSGLUTAMINASE IgA <2 U/mL (0-3); UNITSIGA FOR GLIADIN IGA 3 units (0-19); UNITSIGG FOR GLIADIN IGG 2 units (0-19)
== END ==
LOC: M LAB 12:09
PROVIDERS: ATTEND Internal Medicine Gastroenterology
DX: K76.0 Fatty (change of) liver, not elsewhere classified (principal)

== ENCOUNTER 2019-02-20 09:57 | Day surgery (SDC) | payer OTHER ==
[~2019-02-20] VITALS: Ht 160 cm; Wt 145.6 kg
[~2019-02-20 09:57] MED LIST changes: +NS 1,000 ML IV ONE
[2019-02-20] MEDS ORDERED: fentaNYL 100 MCG/2 ML INJECTION (J3010) As Ordered ONE (10:29)
[2019-02-20] MEDS ORDERED: LIDOCAINE 2% INJ 100 MG/5 ML SDV (FOR ANES.) As Ordered ONE (10:29)
[2019-02-20] MEDS ORDERED: PROPOFOL 500 MG/50 ML VIAL As Ordered ONE (10:30)
--- NOTE | 2019-02-20 12:39 | ROOR ---
Patient Name: Chantel Lucas Procedure Date: 02/20/2019 11:42 AM Date of : 1990 Age: 28 Room: [facility] Gender: Female Note Status: Finalized Procedure: Upper GI endoscopy Indications: Dyspepsia, Portal hypertension rule out esophageal varices Providers: Ganga Guzman MD Referring MD: Yahaira BREWSTER NP Requesting Provider: Medicines: Monitored Anesthesia Care Complications: No immediate complications. Procedure: Pre-Anesthesia Assessment: - Prior to the procedure, a History and Physical was performed, and patient medications and allergies were reviewed. The patient is competent. The risks and benefits of the procedure and the sedation options and risks were discussed with the patient. All questions were answered and informed consent was obtained. Patient identification and proposed procedure were verified by the physician, the nurse and the anesthesiologist in the procedure room. Mental Status Examination: alert and oriented. Airway Examination: normal oropharyngeal airway and neck mobility. Respiratory Examination: clear to auscultation. CV Examination: normal. Prophylactic Antibiotics: The patient does not require prophylactic antibiotics. Prior Anticoagulants: The patient has taken no previous anticoagulant or antiplatelet agents. ASA Grade Assessment: III - A patient with severe systemic disease. After reviewing the risks and benefits, the patient was deemed in satisfactory condition to undergo the procedure. The anesthesia plan was to use monitored anesthesia care (MAC). Immediately prior to administration of medications, the patient was re-assessed for adequacy to receive sedatives. The heart rate, respiratory rate, oxygen saturations, blood pressure, adequacy of pulmonary ventilation, and response to care were monitored throughout the procedure. The physical status of the patient was re-assessed after the procedure. The Endoscope was introduced through the mouth, and advanced to the second part of duodenum. The upper GI endoscopy was accomplished without difficulty. The patient tolerated the procedure well. Findings: The Z-line was regular and was found in the distal esophagus. There is no endoscopic evidence of varices in the entire esophagus. Scattered mild inflammation characterized by erythema and granularity was found in the gastric antrum. Biopsies were taken with a cold forceps for Helicobacter pylori testing. Verification of patient identification for the specimen was done by the physician and nurse using the patient's name, date and medical record number. Estimated blood loss was minimal. The duodenal bulb and second portion of the duodenum were normal. Biopsies for histology were taken with a cold forceps for evaluation of celiac disease. Impression: - Z-line regular, in the distal esophagus. - Gastritis. Biopsied. - Normal duodenal bulb and second portion of the duodenum. Biopsied. Recommendation: - Patient has a contact number available for emergencies. The signs and symptoms of potential delayed complications were discussed with the patient. Return to normal activities tomorrow. Written discharge instructions were provided to the patient. - Resume previous diet. - Continue present medications. - Await pathology results. - Telephone GI clinic for pathology results in 2 weeks. - Return to primary care physician. Ganga Guzman MD Ganga Guzman MD 02/20/2019 12:39:01 PM Electronically signed by Ganga Guzman MD Number of Addenda: 0 Note Initiated On: 02/20/2019 11:42 AM Estimated Blood Loss: Estimated blood loss was minimal.
[2019-02-20 13:00] VITALS: BP 136/95
--- NOTE | 2019-02-20 13:00 | ROOR ---
Patient Name: Chantel Lucas Procedure Date: 02/20/2019 11:43 AM Date of : 1990 Age: 28 Room: [facility] Gender: Female Note Status: Finalized Procedure: Colonoscopy Indications: Chronic diarrhea Providers: Ganga Guzman MD Referring MD: Yahaira BREWSTER NP Requesting Provider: Medicines: Monitored Anesthesia Care Complications: No immediate complications. Procedure: Pre-Anesthesia Assessment: - Prior to the procedure, a History and Physical was performed, and patient medications and allergies were reviewed. The patient is competent. The risks and benefits of the procedure and the sedation options and risks were discussed with the patient. All questions were answered and informed consent was obtained. Patient identification and proposed procedure were verified by the physician, the nurse and the anesthesiologist in the procedure room. Mental Status Examination: alert and oriented. Airway Examination: normal oropharyngeal airway and neck mobility. Respiratory Examination: clear to auscultation. CV Examination: normal. Prophylactic Antibiotics: The patient does not require prophylactic antibiotics. Prior Anticoagulants: The patient has taken no previous anticoagulant or antiplatelet agents. ASA Grade Assessment: III - A patient with severe systemic disease. After reviewing the risks and benefits, the patient was deemed in satisfactory condition to undergo the procedure. The anesthesia plan was to use monitored anesthesia care (MAC). Immediately prior to administration of medications, the patient was re-assessed for adequacy to receive sedatives. The heart rate, respiratory rate, oxygen saturations, blood pressure, adequacy of pulmonary ventilation, and response to care were monitored throughout the procedure. The physical status of the patient was re-assessed after the procedure. The Colonoscope was introduced through the anus and advanced to the terminal ileum, with identification of the appendiceal orifice and IC valve. The colonoscopy was performed without difficulty. The patient tolerated the procedure well. The quality of the bowel preparation was good. Scope insertion time was 3 minutes. Scope withdrawal time was 8 minutes. The total duration of the procedure was 11 minutes. Findings: The perianal and digital rectal examinations were normal. The terminal ileum appeared normal. A 10 mm polyp was found in the sigmoid colon. The polyp was sessile. The polyp was removed with a cold snare. Resection and retrieval were complete. Verification of patient identification for the specimen was done by the physician and nurse using the patient's name, date and medical record number. Estimated blood loss was minimal. Scattered mild inflammation characterized by erythema, friability and loss of vascularity was found in the recto-sigmoid colon. Biopsies for histology were taken with a cold forceps from the right colon, transverse colon and rectosigmoid colon for evaluation of microscopic colitis. Non-bleeding external and internal hemorrhoids were found during retroflexion. The hemorrhoids were medium-sized. Impression: - The examined portion of the ileum was normal. - One 10 mm polyp in the sigmoid colon, removed with a cold snare. Resected and retrieved. - Scattered mild inflammation was found in the recto-sigmoid colon secondary to colitis. Biopsied. - Non-bleeding external and internal hemorrhoids. Recommendation: - Patient has a contact number available for emergencies. The signs and symptoms of potential delayed complications were discussed with the patient. Return to normal activities tomorrow. Written discharge instructions were provided to the patient. - High fiber diet. - Continue present medications. - Await pathology results. - Repeat colonoscopy in 5-10 years for surveillance based on pathology results. - Telephone GI clinic for pathology results in 2 weeks. - Return to primary care physician. Ganga Guzman MD Ganga Guzman MD 02/20/2019 1:00:07 PM Electronically signed by Ganga Guzman MD Number of Addenda: 0 Note Initiated On: 02/20/2019 11:43 AM Estimated Blood Loss: Estimated blood loss was minimal.
== END 2019-02-20 13:15 | disposition home or self-care (01) ==
LOC: M OPP 09:57
PROVIDERS: ATTEND Internal Medicine Gastroenterology
DX: K64.8 Other hemorrhoids (principal); D12.5 Benign neoplasm of sigmoid colon; K52.9 Noninfective gastroenteritis and colitis, unspecified; K29.70 Gastritis, unspecified, without bleeding; R10.13 Epigastric pain; K76.6 Portal hypertension; Z88.0 Allergy status to penicillin; Z88.1 Allergy status to other antibiotic agents; Z88.2 Allergy status to sulfonamides; F17.210 Nicotine dependence, cigarettes, uncomplicated
CPT/HCPCS: 43239; 45380; 45385; 88305; J3010

== ENCOUNTER 2019-12-17 13:20 | Emergency (ER) | payer OTHER ==
[~2019-12-17] VITALS: Ht 160 cm; Wt 151.8 kg
[~2019-12-17 13:20] MED LIST changes: -ALL10TAB28 PO; +ALL10TAB29 PO; -NS 1,000 ML IV ONE
[2019-12-17] MEDS ORDERED: BOOSTRIX/ADACEL VACCINE (DIPHTH/PERTUSS/ACELL/TETANUS) 0.5ML SYR IM ONE (14:00)
[2019-12-17] MEDS ORDERED: LIDOCAINE 2% MDV 20ML VIAL SC ONE (14:00)
[2019-12-17 14:46] VITALS: BP 180/93
== END 2019-12-17 14:48 | disposition home or self-care (01) ==
LOC: M ED 13:20
DX: S61.012A Laceration without foreign body of left thumb without damage to nail, initial encounter (principal); W26.0XXA Contact with knife, initial encounter; Y92.89 Other specified places as the place of occurrence of the external cause; Y93.89 Activity, other specified; Y99.0 Civilian activity done for income or pay; F41.9 Anxiety disorder, unspecified; F32.9 Major depressive disorder, single episode, unspecified; F17.200 Nicotine dependence, unspecified, uncomplicated; Z88.0 Allergy status to penicillin; Z88.1 Allergy status to other antibiotic agents; Z88.2 Allergy status to sulfonamides

== ENCOUNTER 2020-08-03 12:25 | Emergency (ER) | payer OTHER, SELFPAY ==
[~2020-08-03] VITALS: Ht 160 cm; Wt 156.2 kg
[~2020-08-03 12:25] MED LIST changes: -ALL10TAB29 PO; +CETI-24 PO
--- OUTSIDE RECORDS SUMMARY | 2020-08-03 12:35 | CCD ---
Author Author [facility] Organization [facility] Address Unknown Phone Unavailable Support Name Relationship Address Phone [facility] Next Of Kin [id number] [place] [address] [place] [address] SSV* Next Of Kin [id number] [place] [address] [employer] Next Of Kin [address] [place] [address] QUICKLYS Next Of [address] [address] [employer] Next Of [address] [address] [employer]) Next Of Kin [facility] [place] [address] [employer]) Next Of Kin [facility] [place] [address] [employer] Next Of Kin [address] [place] [address] [employer] [place] [address] UE Next Of Kin Unknown Unavailable HOUSE, NICK Next Of Kin [address] [place], [place] [id number] KAYLEIGH RAMAN Next Of Kin [address] [address] Liborio CHOI Next Of Kin [address] [place] [address] Re-disclosure Warning The records that you are about to access may contain information from federally-assisted alcohol or drug abuse programs. If such information is present, then the following federally mandated warning applies: This information has been disclosed to you from records protected by federal confidentiality rules (42 CFR part 2). The federal rules prohibit you from making any further disclosure of this information unless further disclosure is expressly permitted by the written consent of the person to whom it pertains or as otherwise permitted by 42 CFR part 2. A general authorization for the release of medical or other information is NOT sufficient for this purpose. The Federal rules restrict any use of the information to criminally investigate or prosecute any alcohol or drug abuse patient.The records that you are about to access may contain highly sensitive health information, the redisclosure of which is protected by Article 27-F of the [facility] Public Health law. If you continue you may have access to information: Regarding HIV / AIDS; Provided by facilities licensed or operated by the [facility] Office of Mental Health; or Provided by the [facility] Office for People With Developmental Disabilities. If such information is present, then the following [facility] mandated warning applies: This information has been disclosed to you from confidential records which are protected by state law. State law prohibits you from making any further disclosure of this information without the specific written consent of the person to whom it pertains, or as otherwise permitted by law. Any unauthorized further disclosure in violation of state law may result in a fine or residential sentence or both. A general authorization for the release of medical or other information is NOT sufficient authorization for further disc losure. Family History Family Member Name Family Member Gender Family Member Status Date o f Status Description Data Source(s) Unknown Unknown Problem MEDENT ([facility]) Unknown Male Problem MEDENT ([facility]) Unknown Unknown Problem MEDENT ([facility] father Encounters Encounter Providers Location Date Indications Data Source(s ) [place] [address] [facility] [address] 12/30/2019 12:00:00 AM EDT eCW1 ([facility]) Medications Medication Brand Name Start Date Product Form Dose Route Admi nistrative Instructions Pharmacy Instructions Status Indications Reaction Description Data Source(s) 300 mg 05/05/2020 12:00:00 AM EDT capsule 14 TAKE ONE CAPSULE BY MOUTH TWICE A DAY TAKE ONE CAPSULE BY MOUTH TWICE A DAY SOLD: 05/13/2020 [facility] Insurance Providers Payer name Policy type / Coverage type Policy ID Covered green party ID Covered green party's relationship to garcia Policy Garcia Plan Information PMA MANAGEMENT [facility] [id number] SP [id number] UN COMMUNITY PL[facility] [id number] SP [id number] [facility] COMMUNITY PLAN [facility] [id number] SP [id number] [facility] Health Maintenance Organization (HMO) [id number] Self [id number] [employer] COMMUNITY PLAN MCDO [id number] SP [id number] UN COMMUNITY PLAN [facility] [id number] SP [id number] ANSI-Medicaid [id number] ANSI-Medicaid [id number] ANSI-Medicaid [id number] ANSI-Medicaid [id number] ANSI-Medicaid [id number] ANSI-Medicaid [id number] [facility] O [id number] S [id number] ANSI-Medicaid [id number] ANSI-Medicaid [id number] ANSI-Medicaid [id number] ANSI-Medicaid [id number] [facility] Community Plan Commercial [id number] Self [id number] ANSI-Medicaid [id number] [facility] PLAN [facility] [id number] SP [id number] ANSI-Medicaid [id number] ANSI-Medicaid [id number] ANSI-Medicaid [id number] F [facility] PLAN [facility] [id number] SP [id number] [facility] Health Maintenance Organization (O) [id number] Self [id number] F [facility] PLAN [facility] [id number] SP [id number] [facility] Health Maintenance Organization (HMO) [id number] Self [id number] [facility]) O [id number] S [id number] SELF PAY ONLY UNAVAILABLE UNAV AILABLE SELF PAY UNAVAILABLE SP UNAVAILA BLE [facility] [id number] [facility] [id number] [facility] COMMUNITY PLAN [facility] [id number] SP [id number] [facility] [id number] [facility] [id number] MEDICAID -O/P [id number] [facility] COMM PLAN [id number] 18 [id number] BLUE CROSS -O/P [id number] [facility] 1 CLAIMS -O/P [id number] 01 [id number] [facility] [id number] [facility] [id number] Results ID Date Data Source [id number]/26/2020 12:00:00 AM EST [facility] Name Value Range Interpretation Code Description Data Maribell rce(s) Supporting Document(s) SARS coronavirus 2 Ag Negative [facility] This lab was ordered by [facility] and reported by [facility]. ID Date Data Source [id number] 07/19/2020 12:00:00 AM EST [facility] Name Value Range Interpretation Code Description Data Maribell rce(s) Supporting Document(s) SARS-CoV2 Rapid Antigen Negative [facility] This lab was reported by [facility]. ID Date Data Source [id number] 07/05/2020 12:00:00 AM EST [facility] Name Value Range Interpretation Code Description Data Maribell rce(s) Supporting Document(s) SARS-CoV2 Rapid Antigen [facility] This lab was ordered by [facility] and reported by [facility]. ID Date Data Source [id number] 06/21/2020 11:00:00 AM EST [facility] Name Value Range Interpretation Code Description Data Maribell rce(s) Supporting Document(s) SARS coronavirus 2 RNA [facility] This lab was ordered by [facility] and reported by [facility]. ID Date Data Source [id number] 06/14/2020 10:03:00 AM EST [facility] Name Value Range Interpretation Code Description Data Maribell rce(s) Supporting Document(s) SARS coronavirus 2 RNA [facility] This lab was ordered by [facility] and reported by [facility]. ID Date Data Source [id number] 06/07/2020 12:00:00 PM EST [facility] Name Value Range Interpretation Code Description Data Maribell rce(s) Supporting Document(s) SARS coronavirus 2 RNA [facility] This lab was ordered by [facility] and reported by [facility]. ID Date Data Source [id number] 05/31/2020 09:00:00 AM EST [facility] Name Value Range Interpretation Code Description Data Maribell rce(s) Supporting Document(s) SARS coronavirus 2 RNA [facility] This lab was ordered by [facility] and reported by [facility]. ID Date Data Source [id number] 05/24/2020 08:00:00 AM EST [facility] Name Value Range Interpretation Code Description Data Maribell rce(s) Supporting Document(s) SARS coronavirus 2 RNA [facility] This lab was ordered by [facility] and reported by [facility]. ID Date Data Source [id number] 05/17/2020 12:00:00 PM EST [facility] Name Value Range Interpretation Code Description Data Maribell rce(s) Supporting Document(s) SARS coronavirus 2 RNA [facility] This lab was ordered by [facility] and reported by [facility]. ID Date Data Source [id number] 05/10/2020 05:22:00 AM EST [facility] Name Value Range Interpretation Code Description Data Maribell rce(s) Supporting Document(s) SARS coronavirus 2 RNA [facility] This lab was ordered by [facility] and reported by [facility]. ID Date Data Source [id number] 05/03/2020 02:00:00 PM EDT [facility] Name Value Range Interpretation Code Description Data Maribell rce(s) Supporting Document(s) SARS coronavirus 2 RNA [facility] This lab was ordered by [facility] and reported by [facility]. ID Date Data Source [id number] 04/26/2020 03:30:00 PM EDT [facility] Name Value Range Interpretation Code Description Data Maribell rce(s) Supporting Document(s) SARS coronavirus 2 RNA [facility] This lab was ordered by [facility] and reported by [facility]. ID Date Data Source [id number] 04/19/2020 12:00:00 PM EDT [facility] Name Value Range Interpretation Code Description Data Maribell rce(s) Supporting Document(s) SARS coronavirus 2 RNA [facility] This lab was ordered by [facility] and reported by [facility]. ID Date Data Source [id number] 04/12/2020 11:00:00 AM EDT [facility] Name Value Range Interpretation Code Description Data Maribell rce(s) Supporting Document(s) SARS coronavirus 2 RNA [facility] This lab was ordered by [facility] and reported by [facility]. ID Date Data Source [id number] 03/29/2020 08:02:00 AM EDT [facility] Name Value Range Interpretation Code Description Data Maribell rce(s) Supporting Document(s) SARS coronavirus 2 RNA [facility] This lab was ordered by [facility] and reported by [facility]. ID Date Data Source [id number] 03/15/2020 12:00:00 PM EDT [facility] Name Value Range Interpretation Code Description Data Maribell rce(s) Supporting Document(s) SARS coronavirus 2 RNA [facility] This lab was ordered by [facility] and reported by [facility]. ID Date Data Source [id number] 03/08/2020 11:44:00 AM EDT [facility] Name Value Range Interpretation Code Description Data Maribell rce(s) Supporting Document(s) SARS coronavirus 2 RNA [facility] This lab was ordered by [facility] and reported by [facility]. ID Date Data Source [id number] 03/01/2020 11:09:00 AM EDT [facility] Name Value Range Interpretation Code Description Data Maribell rce(s) Supporting Document(s) SARS coronavirus 2 RNA [facility] This lab was ordered by [facility] and reported by [facility]. ID Date Data Source [id number] 01/26/2020 03:32:00 PM EDT [facility] Name Value Range Interpretation Code Description Data Maribell rce(s) Supporting Document(s) SARS coronavirus 2 RNA [facility] This lab was ordered by [facility] and reported by [facility]. ID Date Data Source [id number] 01/19/2020 01:25:00 PM EDT [facility] Name Value Range Interpretation Code Description Data Maribell rce(s) Supporting Document(s) SARS coronavirus 2 RNA [facility] This lab was ordered by [facility] and reported by [facility]. ID Date Data Source [id number] 01/12/2020 01:16:00 PM EDT [facility] Name Value Range Interpretation Code Description Data Maribell rce(s) Supporting Document(s) SARS coronavirus 2 RNA [facility] This lab was ordered by [facility] and reported by [facility]. ID Date Data Source [id number] 01/05/2020 11:43:00 AM EDT [facility] Name Value Range Interpretation Code Description Data Maribell rce(s) Supporting Document(s) SARS CORONAVIRUS 2 RNA [facility] This lab was ordered by [facility] and reported by [facility]. ID Date Data Source [id number] 12/29/2019 05:30:00 AM EDT [facility] Name Value Range Interpretation Code Description Data Maribell rce(s) Supporting Document(s) SARS CORONAVIRUS 2 RNA [facility] This lab was ordered by [facility] and reported by [facility]. ID Date Data Source [id number] 12/22/2019 11:49:00 AM EDT [facility] Name Value Range Interpretation Code Description Data Maribell rce(s) Supporting Document(s) SARS CORONAVIRUS 2 RNA [facility] This lab was ordered by [facility] and reported by [facility]. ID Date Data Source [id number] 12/15/2019 03:29:00 PM EDT [facility] Name Value Range Interpretation Code Description Data Maribell rce(s) Supporting Document(s) SARS CORONAVIRUS 2 RNA [facility] This lab was ordered by [facility] and reported by [facility]. ID Date Data Source [id number] 12/11/2019 02:07:00 PM EDT [facility] Name Value Range Interpretation Code Description Data Maribell rce(s) Supporting Document(s) SARS CORONAVIRUS 2 RNA [facility] This lab was ordered by [facility] and reported by [facility]. ID Date Data Source [id number] 12/08/2019 02:07:00 PM EDT [facility] Name Value Range Interpretation Code Description Data Maribell rce(s) Supporting Document(s) SARS CORONAVIRUS 2 RNA [facility] This lab was ordered by [facility] and reported by [facility]. ID Date Data Source [id number] 12/04/2019 10:18:00 AM EDT [facility] Name Value Range Interpretation Code Description Data Maribell rce(s) Supporting Document(s) SARS CORONAVIRUS 2 RNA [facility] This lab was ordered by [facility] and reported by [facility]. ID Date Data Source [id number] 12/02/2019 03:22:00 PM EDT [facility] Name Value Range Interpretation Code Description Data Maribell rce(s) Supporting Document(s) SARS CORONAVIRUS 2 RNA [facility] This lab was ordered by [facility] and reported by [facility]. ID Date Data Source [id number] 11/26/2019 03:06:00 PM EDT [facility] Name Value Range Interpretation Code Description Data Maribell rce(s) Supporting Document(s) SARS CORONAVIRUS 2 RNA [facility] This lab was ordered by [facility] and reported by [facility]. ID Date Data Source [id number] 11/23/2019 05:30:00 AM EDT [facility] Name Value Range Interpretation Code Description Data Maribell rce(s) Supporting Document(s) SARS CORONAVIRUS 2 RNA [facility] This lab was ordered by [facility] and reported by [facility]. Procedure Social History Code Duration Value Status Description Data Source(s ) Smoking 12/30/2019 12:00:00 AM EDT Current Smoker completed Curre nt Smoker eCW1 ([facility]) Vital Signs ID Date Data Source UNK Name Value Range Interpretation Code Description Data Source(s) Diastolic blood pressure 77 mm[Hg] 77 mm[Hg] eCW1 ([facility]) Systolic blood pressure 109 mm[Hg] 109 mm[Hg] e CW1 ([facility]) Body temperature 98.1 [degF] 98.1 [degF] eCW1 ( [facility]) Respiratory rate 18 /min 18 /min eCW1 ([facility]) Heart rate 88 /min 88 /min eCW1 ([facility]) Body mass index (BMI) [Ratio] 61.27 kg/m2 61.27 kg/m2 eCW1 ([facility]) Body height 62 [in_i] 62 [in_i] eCW1 ([facility]) Body weight 335 [lb_av] 335 [lb_av] eCW1 ([facility])
--- OUTSIDE RECORDS SUMMARY | 2020-08-03 13:21 | CCD ---
Author Author [facility] Organization [facility] Address Unknown Phone Unavailable Support Name Relationship Address Phone [facility] Next Of Kin [id number] [place] [address] [place] [address] SSV* Next Of Kin [id number] [place] [address] [employer] Next Of Kin [address] [place] [address] QUICKLYS Next Of [address] [address] [employer] Next Of [address] [address] [employer] (MOB[place]) Next Of Kin [facility] [place] [address] [employer] [place]) Next Of Kin [facility] [place] [address] [employer] Next Of Kin [address] [place] [address] [employer] [place] [address] UE Next Of Kin Unknown Unavailable HOUSE, NICK Next Of Kin [address] [place], [place] [id number] KAYLEIGH RAMAN Next Of Kin [address] [address] Liborio CHOI Next Of Kin [address] [place] [address] Re-disclosure Warning The records that you are [...] is protected by Article 27-F of the [facility] Public Health law. If you continue you may have access to information: Regarding HIV / AIDS; Provided by facilities licensed or operated by the [facility] Office of Mental Health; or Provided by the [facility] Office for People With Developmental Disabilities. If such information is present, then the following [facility] mandated warning applies: This information has [...] law may result in a fine or longterm sentence or both. A general authorization for the release of medical or other information is NOT sufficient authorization for further disc losure. Family History Family Member Name Family Member Gender Family Member Status Date o f Status Description Data Source(s) Unknown Unknown Problem MEDENT ([facility]) Unknown Male Problem MEDENT ([facility]) Unknown Unknown Problem MEDENT ([facility]) father Encounters Encounter Providers Location Date Indications Data Source(s ) Outpatient [address] [facility] [address] 12/30/2019 12:00:00 AM EDT eCW1 ([facility]) Medications Medication Brand Name Start Date Product Form Dose Route Admi nistrative Instructions Pharmacy Instructions Status Indications Reaction Description Data Source(s) 300 mg 05/05/2020 12:00:00 AM EDT capsule 14 TAKE ONE CAPSULE BY MOUTH TWICE A DAY TAKE ONE CAPSULE BY MOUTH TWICE A DAY SOLD: 05/13/2020 [facility] Insurance Providers Payer name Policy type / Coverage type Policy ID Covered republican ID Covered republican's relationship to garcia Policy Garcia Plan Information PMA MANAGEMENT [facility] [id number] SP [id number] UN COMMUNITY PLAN [facility] [id number] SP [id number] [facility] COMMUNITY PLAN [facility] [id number] SP [id number] [facility] Health Maintenance Organization (HMO) [id number] Self [id number] [employer] COMMUNITY PLAN MCDO [id number] SP [id number] UN COMMUNITY PLAN [facility] [id number] SP [id number] ANSI-Medicaid [id number] ANSI-Medicaid [id number] ANSI-Medicaid [id number] ANSI-Medicaid [id number] ANSI-Medicaid [id number] ANSI-Medicaid [id number] [facility] O [id number] S [id number] ANSI-Medicaid [id number] ANSI-Medicaid [id number] ANSI-Medicaid [id number] ANSI-Medicaid [id number] [facility] Community Plan Commercial [id number] Self [id number] ANSI-Medicaid [id number] [facility] PLAN [facility] [id number] SP [id number] ANSI-Medicaid [id number] ANSI-Medicaid [id number] ANSI-Medicaid [id number] [facility] PLAN [facility] [id number] SP [id number] [facility] Health Maintenance Organization (O) [id number] Self [id number] [facility] PLAN [facility] [id number] SP [id number] [facility] Health Maintenance Organization (HMO) [id number] Self [id number] [facility]) O [id number] S [id number] SELF PAY ONLY UNAVAILABLE UNAV AILABLE SELF PAY UNAVAILABLE SP UNAVAILA BLE [facility] [id number] [facility] [id number] [facility] COMMUNITY PLAN [facility] [id number] SP [id number] [facility] [id number] [facility] [id number] MEDICAID -O/P [id number] [facility] COMM PLAN [id number] 18 [id number] BLUE CROSS -O/P [id number] [facility] 1 CLAIMS -O/P [id number] 01 [id number] [facility] [id number] [facility] [id number] Results ID Date Data Source [id number]/26/2020 12:00:00 AM EST [facility] Name Value Range Interpretation Code Description Data Maribell rce(s) Supporting Document(s) SARS coronavirus 2 Ag Negative [facility] This lab was ordered by [facility] and reported by [facility]. ID Date Data Source [id number] 07/19/2020 12:00:00 AM EST [facility] Name Value Range Interpretation Code Description Data Maribell rce(s) Supporting Document(s) SARS-CoV2 Rapid Antigen Negative [facility] This lab was reported by [facility]. ID Date Data Source [id number] 07/05/2020 12:00:00 AM EST [facility] Name Value Range Interpretation Code Description Data Maribell rce(s) Supporting Document(s) SARS-CoV2 Rapid Antigen [facility] This lab was ordered by [facility] and reported by [facility]. ID Date Data Source [id number] 06/21/2020 11:00:00 AM EST [facility] Name Value Range Interpretation Code Description Data Maribell rce(s) Supporting Document(s) SARS coronavirus 2 RNA [facility] This lab was ordered by [facility] and reported by [facility]. ID Date Data Source [id number] 06/14/2020 10:03:00 AM EST [facility] Name Value Range Interpretation Code Description Data Maribell rce(s) Supporting Document(s) SARS coronavirus 2 RNA [facility] This lab was ordered by [facility] and reported by [facility]. ID Date Data Source [id number] 06/07/2020 12:00:00 PM EST [facility] Name Value Range Interpretation Code Description Data Maribell rce(s) Supporting Document(s) SARS coronavirus 2 RNA [facility] This lab was ordered by [facility] and reported by [facility]. ID Date Data Source [id number] 05/31/2020 09:00:00 AM EST [facility] Name Value Range Interpretation Code Description Data Maribell rce(s) Supporting Document(s) SARS coronavirus 2 RNA [facility] This lab was ordered by [facility] and reported by [facility]. ID Date Data Source [id number] 05/24/2020 08:00:00 AM EST [facility] Name Value Range Interpretation Code Description Data Maribell rce(s) Supporting Document(s) SARS coronavirus 2 RNA [facility] This lab was ordered by [facility] and reported by [facility]. ID Date Data Source [id number] 05/17/2020 12:00:00 PM EST [facility] Name Value Range Interpretation Code Description Data Maribell rce(s) Supporting Document(s) SARS coronavirus 2 RNA [facility] This lab was ordered by [facility] and reported by [facility]. ID Date Data Source [id number] 05/10/2020 05:22:00 AM EST [facility] Name Value Range Interpretation Code Description Data Maribell rce(s) Supporting Document(s) SARS coronavirus 2 RNA [facility] This lab was ordered by [facility] and reported by [facility]. ID Date Data Source [id number] 05/03/2020 02:00:00 PM EDT [facility] Name Value Range Interpretation Code Description Data Maribell rce(s) Supporting Document(s) SARS coronavirus 2 RNA [facility] This lab was ordered by [facility] and reported by [facility]. ID Date Data Source [id number] 04/26/2020 03:30:00 PM EDT [facility] Name Value Range Interpretation Code Description Data Maribell rce(s) Supporting Document(s) SARS coronavirus 2 RNA [facility] This lab was ordered by [facility] and reported by [facility]. ID Date Data Source [id number] 04/19/2020 12:00:00 PM EDT [facility] Name Value Range Interpretation Code Description Data Maribell rce(s) Supporting Document(s) SARS coronavirus 2 RNA [facility] This lab was ordered by [facility] and reported by [facility]. ID Date Data Source [id number] 04/12/2020 11:00:00 AM EDT [facility] Name Value Range Interpretation Code Description Data Maribell rce(s) Supporting Document(s) SARS coronavirus 2 RNA [facility] This lab was ordered by [facility] and reported by [facility]. ID Date Data Source [id number] 03/29/2020 08:02:00 AM EDT [facility] Name Value Range Interpretation Code Description Data Maribell rce(s) Supporting Document(s) SARS coronavirus 2 RNA [facility] This lab was ordered by [facility] and reported by [facility]. ID Date Data Source [id number] 03/15/2020 12:00:00 PM EDT [facility] Name Value Range Interpretation Code Description Data Maribell rce(s) Supporting Document(s) SARS coronavirus 2 RNA [facility] This lab was ordered by [facility] and reported by [facility]. ID Date Data Source [id number] 03/08/2020 11:44:00 AM EDT [facility] Name Value Range Interpretation Code Description Data Maribell rce(s) Supporting Document(s) SARS coronavirus 2 RNA [facility] This lab was ordered by [facility] and reported by [facility]. ID Date Data Source [id number] 03/01/2020 11:09:00 AM EDT [facility] Name Value Range Interpretation Code Description Data Maribell rce(s) Supporting Document(s) SARS coronavirus 2 RNA [facility] This lab was ordered by [facility] and reported by [facility]. ID Date Data Source [id number] 01/26/2020 03:32:00 PM EDT [facility] Name Value Range Interpretation Code Description Data Maribell rce(s) Supporting Document(s) SARS coronavirus 2 RNA [facility] This lab was ordered by [facility] and reported by [facility]. ID Date Data Source [id number] 01/19/2020 01:25:00 PM EDT [facility] Name Value Range Interpretation Code Description Data Maribell rce(s) Supporting Document(s) SARS coronavirus 2 RNA [facility] This lab was ordered by [facility] and reported by [facility]. ID Date Data Source [id number] 01/12/2020 01:16:00 PM EDT [facility] Name Value Range Interpretation Code Description Data Maribell rce(s) Supporting Document(s) SARS coronavirus 2 RNA [facility] This lab was ordered by [facility] and reported by [facility]. ID Date Data Source [id number] 01/05/2020 11:43:00 AM EDT [facility] Name Value Range Interpretation Code Description Data Maribell rce(s) Supporting Document(s) SARS CORONAVIRUS 2 RNA [facility] This lab was ordered by [facility] and reported by [facility]. ID Date Data Source [id number] 12/29/2019 05:30:00 AM EDT [facility] Name Value Range Interpretation Code Description Data Maribell rce(s) Supporting Document(s) SARS CORONAVIRUS 2 RNA [facility] This lab was ordered by [facility] and reported by [facility]. ID Date Data Source [id number] 12/22/2019 11:49:00 AM EDT [facility] Name Value Range Interpretation Code Description Data Maribell rce(s) Supporting Document(s) SARS CORONAVIRUS 2 RNA [facility] This lab was ordered by [facility] and reported by [facility]. ID Date Data Source [id number] 12/15/2019 03:29:00 PM EDT [facility] Name Value Range Interpretation Code Description Data Maribell rce(s) Supporting Document(s) SARS CORONAVIRUS 2 RNA [facility] This lab was ordered by [facility] and reported by [facility]. ID Date Data Source [id number] 12/11/2019 02:07:00 PM EDT [facility] Name Value Range Interpretation Code Description Data Maribell rce(s) Supporting Document(s) SARS CORONAVIRUS 2 RNA [facility] This lab was ordered by [facility] and reported by [facility]. ID Date Data Source [id number] 12/08/2019 02:07:00 PM EDT [facility] Name Value Range Interpretation Code Description Data Maribell rce(s) Supporting Document(s) SARS CORONAVIRUS 2 RNA [facility] This lab was ordered by [facility] and reported by [facility]. ID Date Data Source [id number] 12/04/2019 10:18:00 AM EDT [facility] Name Value Range Interpretation Code Description Data Maribell rce(s) Supporting Document(s) SARS CORONAVIRUS 2 RNA [facility] This lab was ordered by [facility] and reported by [facility]. ID Date Data Source [id number] 12/02/2019 03:22:00 PM EDT [facility] Name Value Range Interpretation Code Description Data Maribell rce(s) Supporting Document(s) SARS CORONAVIRUS 2 RNA [facility] This lab was ordered by [facility] and reported by [facility]. ID Date Data Source [id number] 11/26/2019 03:06:00 PM EDT [facility] Name Value Range Interpretation Code Description Data Maribell rce(s) Supporting Document(s) SARS CORONAVIRUS 2 RNA [facility] This lab was ordered by [facility] and reported by [facility]. ID Date Data Source [id number] 11/23/2019 05:30:00 AM EDT [facility] Name Value Range Interpretation Code Description Data Maribell rce(s) Supporting Document(s) SARS CORONAVIRUS 2 RNA [facility] This lab was ordered by [facility] and reported by [facility]. Procedure Social History Code Duration Value Status Description Data Source(s ) Smoking 12/30/2019 12:00:00 AM EDT Current Smoker completed Curre nt Smoker eCW1 ([facility]) Vital Signs ID Date Data Source UNK Name Value Range Interpretation Code Description Data Source(s) Diastolic blood pressure 77 mm[Hg] 77 mm[Hg] eCW1 ([facility]) Systolic blood pressure 109 mm[Hg] 109 mm[Hg] e CW1 ([facility]) Body temperature 98.1 [degF] 98.1 [degF] eCW1 ( [facility]) Respiratory rate 18 /min 18 /min eCW1 ([facility]) Heart rate 88 /min 88 /min eCW1 ([facility]) Body mass index (BMI) [Ratio] 61.27 kg/m2 61.27 kg/m2 eCW1 ([facility]) Body height 62 [in_i] 62 [in_i] eCW1 ([facility]) Body weight 335 [lb_av] 335 [lb_av] eCW1 ([facility])
--- NOTE | 2020-08-03 14:54 | ECGEPIP ---
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
[2020-08-03 15:07] LABS: BASO % 0.5 % (0.0-1.0); EOS # 0.2 10^3/uL (0.0-0.5); EOS % 2.4 % (0.0-3.0); HEMATOCRIT 39.4 % (36.0-47.0); LYMPH # 1.9 10^3/uL (1.5-5.0); LYMPH % 22.6 % (24.0-44.0); MEAN CORPUSCULAR HEMOGLOBIN 29.1 pg (27.0-33.0); MEAN CORPUSCULAR VOLUME 88.3 fl (80.0-96.0); MONO # 0.6 10^3/uL (0.0-0.8); MONO % 7.6 % (0.0-5.0); NEUTROPHILS # 5.6 10^3/uL (1.5-8.5); NEUTROPHILS % 66.7 % (36.0-66.0); PLATELET COUNT, AUTOMATED 297 10^3/uL (150-450); RED BLOOD COUNT 4.46 10^6/uL (4.00-5.40); WHITE BLOOD COUNT 8.4 10^3/uL (4.0-10.0)
[2020-08-03] MEDS ORDERED: ALBUTEROL 90 MCG/ACT 8GM HFA INHALER INH ONE (15:15)
[2020-08-03 15:59] VITALS: BP 145/68
== END 2020-08-03 16:21 | disposition home or self-care (01) ==
LOC: M ED 12:25
DX: J45.909 Unspecified asthma, uncomplicated (principal); R06.02 Shortness of breath; R07.89 Other chest pain; F17.200 Nicotine dependence, unspecified, uncomplicated; Z88.0 Allergy status to penicillin

== ENCOUNTER → 2020-09-22 | Outpatient (CLI) | payer OTHER ==
--- NOTE | 2020-09-22 10:18 | REP ---
INDICATION: CONTUSION COMPARISON: None. TECHNIQUE: AP, lateral, bilateral oblique views . FINDINGS: No acute fracture or dislocation. Skeletal structures, joint spaces, and surrounding soft tissues are essentially normal. Lateral view demonstrates small calcaneal heel spur. IMPRESSION: . No acute fracture or dislocation. <Electronically signed by Florentino Pedroza > 09/22/20 1011
== END ==
LOC: M WUC 09:31
PROVIDERS: ATTEND Physician Assistant
DX: M77.32 Calcaneal spur, left foot (principal); S90.32XA Contusion of left foot, initial encounter; X58.XXXA Exposure to other specified factors, initial encounter; Y92.9 Unspecified place or not applicable; Y99.9 Unspecified external cause status

== ENCOUNTER → 2020-09-27 | Outpatient (CLI) | payer OTHER ==
--- NOTE | 2020-09-27 17:53 | REP ---
INDICATION: TENDERNESS OF LT LEG. COMPARISON: None. TECHNIQUE: Deep vein duplex ultrasonography of the left lower extremity for thrombus. FINDINGS: The deep veins demonstrate normal compression, normal Doppler color flow and normal Doppler waveforms with respiration augmentation at multiple levels from the popliteal vein to the common femoral vein. IMPRESSION: Negative study. There is no evidence of deep vein thrombus in the left lower extremity. <Electronically signed by Raúl Burgess > 09/27/20 [id number]
== END ==
LOC: M RAD 16:51
PROVIDERS: ATTEND Nurse Practitioner Adult Health
DX: M79.672 Pain in left foot (principal)

== ENCOUNTER → 2021-03-28 | Outpatient (REF) | LOC: M EMP 11:54 | PROVIDERS: ATTEND Family Medicine | DX: Z11.52 Encounter for screening for COVID-19 (principal) ==

== ENCOUNTER → 2021-03-31 | Outpatient (REF) | LOC: M LABSMTC 10:30 | PROVIDERS: ATTEND Pediatrics | DX: Z20.822 Contact with and (suspected) exposure to COVID-19 (principal) ==

== ENCOUNTER → 2021-08-10 | Outpatient (REF) | LOC: M LABSMTC 10:04 | PROVIDERS: ATTEND Family Medicine | DX: Z11.52 Encounter for screening for COVID-19 (principal) ==

== ENCOUNTER → 2021-11-06 | Outpatient (CLI) | payer OTHER | LOC: M RAD 10:30 | PROVIDERS: ATTEND Physician Assistant | DX: S93.402A Sprain of unspecified ligament of left ankle, initial encounter (principal); M19.072 Primary osteoarthritis, left ankle and foot; X58.XXXA Exposure to other specified factors, initial encounter; Y92.9 Unspecified place or not applicable; Y93.9 Activity, unspecified; Y99.9 Unspecified external cause status ==